=== PATIENT | female | born 1995 | race Two or more races ===

== ENCOUNTER 2025-05-01 09:26 | Emergency (ER) | payer OTHER, SELFPAY ==
[2025-05-01] MEDS ORDERED: predniSONE 20 MG TAB ONE (10:03)
[2025-05-01] MEDS ORDERED: AMOX/K CLAV 875 MG TAB ONE (10:04)
--- NOTE | 2025-05-01 10:06 | EDPHYS ---
Physician Documentation [facility] Name: Elizabeth Han Age: 29 yrs Sex: Female : 1995 Arrival Date: 05/01/2025 Time: 09:26 Bed 18 Private MD: ED Physician Giovanny Zelaya HPI: 05/01 10:01 This 29 yrs old Female presents to ER via Ambulatory with complaints of Headache, kb Facial Swelling, Toothache. 10:01 Pt is a 29 year old female who presents for pain to wisdom tooth on left lower jaw that kb started a week and a half ago. States the pain is now causing a headache. Also reports pain to left side of neck that radiates down left arm with numbness and tingling. . 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 - Infectious Disease History:: Denies. - Social history:: Smoking status: Patient denies any tobacco usage or history of. ROS: 10:03 Constitutional: As per HPI kb Exam: 10:03 Constitutional: This is a well developed, well nourished patient who is awake, alert, kb and in no acute distress. Head/Face: Normocephalic, atraumatic. ENT: Moist Mucous membranes Cardiovascular: Regular rate Respiratory: Respirations even and unlabored. No increased work of breathing. Talking in full sentences Skin: Warm, dry with normal turgor. Normal color. MS/ Extremity: Pulses equal, no cyanosis. Neurovascular intact. Full, normal range of motion. Neuro: Awake and alert, GCS 15, oriented to person, place, time, and situation. 10:03 Back: pain, that is mild, of the left trapezius, Vital Signs: 09:35 BP 120 / 81; Pulse 102; Resp 16; Temp 98.3; Pulse Ox 100% ; Weight 63.5 kg; Height 5 hb ft. 5 in. ; Pain 8/10; 10:20 BP 107 / 74; Pulse 80; Resp 18; Pulse Ox 100% on R/A; ap3 09:35 Body Mass Index 23.30 (63.50 kg, 165.1 cm) hb 09:35 Pain Scale: Adult hb Butner Coma Score: 10:04 Eye Response: spontaneous(4). Motor Response: obeys commands(6). Verbal Response: kb oriented(5). Total: 15. MDM: 09:30 Medical Screening Exam initiated kb 10:04 Differential diagnosis: dental infection, cervical radiculopathy, strain, migraine. kb Data reviewed: vital signs, nurses notes. Counseling: I had a detailed discussion with the patient and/or guardian regarding the historical points, exam findings, and any diagnostic results supporting the discharge/admit diagnosis, the need for outpatient follow up, a family practitioner, to return to the emergency department if symptoms worsen or persist or if there are any questions or concerns that arise at home. 10:04 Test considered but Not performed: CT: ct maxilofacial considered but pt has no kb swelling, redness, fever. Administered Medications: 10:17 Drug: Amoxicillin-Clavulanate PO 875 mg PO once Route: PO; ap3 10:17 Follow up: Response: Medication administered at discharge. ap3 10:17 Drug: predniSONE PO 40 mg PO once Route: PO; ap3 10:17 Follow up: Response: Medication administered at discharge. ap3 Disposition Summary: 05/01/25 10:05 Discharge Ordered Notes: Location: Home kb Condition: Stable kb Diagnosis - Radiculopathy, cervical region kb - Dental pain kb Followup: kb - With: Emergency Department - When: As needed - Reason: Worsening of condition Followup: kb - With: Private Physician - When: 2 - 3 days - Reason: Recheck today's complaints, Continuance of care, Re-evaluation by your physician Discharge Instructions: - Discharge Summary Sheet kb - Cervical Radiculopathy, [id number] kb - Dental Abscess, [id number] kb Forms: - Medication Reconciliation Form kb - Antibiotic Education kb - Prescription Opioid Use kb - Patient Portal Instructions kb - Leadership Thank You Letter kb Prescriptions: - Augmentin 875-125 mg Oral Tablet - take 1 tablet ORAL route every 12 hours for 10 days; 20 tablet; Refills: 0, kb Product Selection Permitted - Prednisone 20 mg Oral Tablet - take 1 tablet ORAL route once daily for 5 days; 5 tablet; Refills: 0, Product kb Selection Permitted - Diclofenac Sodium 75 mg Oral tablet, delayed release (enteric coated) - take 1 tablet ORAL route 2 times per day As needed; 30 tablet; Refills: 0, kb Product Selection Permitted Signatures: Corine Bang, LINDSEY-C PICKLING GRADER-Elizabeth Reyes RN RN hb Mariana Avery RN RN ap3 Corrections: (The following items were deleted from the chart) 09:37 09:37 Home Meds: None; hb hb
--- NOTE | 2025-05-01 10:06 | ER ---
Nurse's Notes [facility] Name: Elizabeth Han Age: 29 yrs Sex: Female : 1995 Arrival Date: 05/01/2025 Time: 09:26 Bed 18 Private MD: Diagnosis: Radiculopathy, cervical region;Dental pain Presentation: 05/01 09:35 Chief complaint: Left sided wisdom tooth pain and headache. Coronavirus screen: At this hb time, the client does not indicate any symptoms associated with coronavirus-19. Ebola Screen: No symptoms or risks identified at this time. Initial Sepsis Screen: Does the patient meet any 2 criteria? No. Patient's initial sepsis screen is negative. Does the patient have a suspected source of infection? No. Patient's initial sepsis screen is negative. Risk Assessment: Do you want to hurt yourself or someone else? Patient reports no desire to harm self or others. Onset of symptoms was May 01, 2025. 09:35 Method Of Arrival: Ambulatory hb 09:35 Acuity: GERTRUDIS 4 hb Triage Assessment: 10:17 Headache History: The patient has had previous headaches. General: Appears in no ap3 apparent distress. Behavior is calm, cooperative, appropriate for age. Pain: Complains of pain in chin, right jaw, left jaw and mouth and left trapezius Pain began gradually. Neuro: Level of Consciousness is awake, alert, obeys commands, Oriented to person, place, time, situation, Appropriate for age. Cardiovascular: Patient's skin is warm and dry. Respiratory: Airway is patent Respiratory effort is even, unlabored, Respiratory pattern is regular, symmetrical. 10:19 Pain: Also complains of. ap3 10:20 Pain: Pain currently is 7 out of 10 on a pain scale. 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 - Infectious Disease History:: Denies. - Social history:: Smoking status: Patient denies any tobacco usage or history of. Screenin:17 [facility] ED Fall Risk Assessment (Adult) History of falling in the last 3 months, ap3 including since admission No falls in past 3 months (0 pts) Confusion or Disorientation No (0 pts) Intoxicated or Sedated No (0 pts) Impaired Gait No (0 pts) Mobility Assist Device Used No (0 pt) Altered Elimination No (0 pt) Score/Fall Risk Level 0 - 2 = Low Risk Oriented to surroundings, Maintained a safe environment, Educated pt \T\ family on fall prevention, incl call for assistance when getting out of bed, Assessed \T\ reinforced patient's understanding of fall precautions, Hourly rounding (assess needs \T\ fall precautionary measures) done, Used ambulatory aids as needed (educated on \T\ assisted with). Abuse screen: Denies threats or abuse. Nutritional screening: No deficits noted. Tuberculosis screening: No symptoms or risk factors identified. Vital Signs: 09:35 BP 120 / 81; Pulse 102; Resp 16; Temp 98.3; Pulse Ox 100% ; Weight 63.5 kg; Height 5 hb ft. 5 in. ; Pain 8/10; 10:20 BP 107 / 74; Pulse 80; Resp 18; Pulse Ox 100% on R/A; ap3 09:35 Body Mass Index 23.30 (63.50 kg, 165.1 cm) hb 09:35 Pain Scale: Adult hb Chauncey Coma Score: 10:04 Eye Response: spontaneous(4). Motor Response: obeys commands(6). Verbal Response: kb oriented(5). Total: 15. ED Course: 09:29 Patient arrived in ED. al6 09:30 Corine [facility]C [facility] kb 09:30 Giovanny Zelaya MD is Attending Physician. kb 09:36 Triage completed. hb 09:37 Arm band placed on. hb 09:59 Mariana Avery, JAMES is Primary Nurse. ap3 10:19 Patient has correct armband on for positive identification. Bed in low position. Call ap3 light in reach. Side rails up X 1. Provided Education on: discharge instructions. 10:19 No provider procedures requiring assistance completed. Patient did not have IV access ap3 during this emergency room visit. Administered Medications: 10:17 Drug: Amoxicillin-Clavulanate PO 875 mg PO once Route: PO; ap3 10:17 Follow up: Response: Medication administered at discharge. ap3 10:17 Drug: predniSONE PO 40 mg PO once Route: PO; ap3 10:17 Follow up: Response: Medication administered at discharge. ap3 Medication: 10:20 VIS not applicable for this client. ap3 Outcome: 10:05 Discharge ordered by . kb 10:19 Discharged to home ambulatory, ap3 10:19 Condition: good 10:19 Discharge instructions given to patient, Instructed on discharge instructions, follow up and referral plans. medication usage, Demonstrated understanding of instructions, follow-up care, medications, Prescriptions given X 3, 10:20 Patient left the ED. ap3 Signatures: Corine Bang, MEDICAL TYPIST-C MEDICAL TYPIST-Elizabeth Reyes RN RN Mariana Avery RN RN ap3 Joslyn Mcgee Corrections: (The following items were deleted from the chart) 09:37 09:37 Home Meds: None; hb hb
[2025-05-01 10:36] VITALS: TEMP 98.3; O2SAT 100
[2025-05-01 10:38] VITALS: BP 107/74
== END 2025-05-01 10:20 | disposition home or self-care (01) ==
LOC: ER 09:26
DX: M54.12 Radiculopathy, cervical region (principal); K08.89 Other specified disorders of teeth and supporting structures
CPT/HCPCS: 99283; J7512